=== PATIENT | female | born 1995 | race Caucasian/White ===

== ENCOUNTER 2016-09-15 02:43 | Emergency (ER) | payer OTHER ==
[2016-09-15 02:55] VITALS: TEMP 97.9
--- NOTE | 2016-09-15 02:55 | EDPHY ---
HPI/HX/ROS/PE/MDM Narrative: Chief complaint: Altered mental status, intoxication HPI: 21-year-old female states that she has been drinking alcohol and using cocaine and taking Xanax tonight. Friends state that they found her in a some point she appeared to be unresponsive. Patient is awake and alert when I am speaking with her. She denies suicidal ideation. States she was just partying was not trying to harm herself. Does have a history of depression and normally takes Lexapro. Currently is without complaint. No recent illness. ROS: 10 point Review of Systems is negative except as noted in the HPI. Physical exam: Gen: Awake, slurred speech, odor of alcohol HEENT: Nose: no rhinorrhea Eyes: PERRLA, pupils dilated at 8 mm Mouth: Moist mucosa Neck: Supple, no JVD Chest: nontender, lungs clear to auscultation Heart: S1, S2 normal, no murmur Abd: Soft, non-tender, no guarding Back: no CVA tenderness, no midline tenderness Ext: no edema, non-tender Skin: no rash Neuro: CN II-XII intact, Sensation grossly intact, Strength 5/5 in bilateral upper and lower extremities ED Course: Patient ambulating without assistance the emergency department. She is not clinically intoxicated. Will discharged in the care of her friends. - Data Points Medications Given: Discontinued Medications Sodium Chloride (Ns) 1,000 mls @ 0 mls/hr IV ONCE ONE PRN Reason: Wide Open Stop: 09/15/16 03:16 Last Admin: 09/15/16 03:15 Dose: 1,000 mls General Time Seen by Provider: 09/15/16 02:50 Initial Vital Signs: Initial Vital Signs Temperature (C) 36.6 C 09/15/16 02:49 Heart Rate 96 09/15/16 02:49 Respiratory Rate 14 09/15/16 02:49 Blood Pressure 135/100 H 09/15/16 02:49 O2 Sat (%) 97 09/15/16 02:49 O2 Delivery Mode Room Air Allergies/Adverse Reactions: No Known Allergies Allergy (Unverified 09/15/16 02:51) Home Medications: Medication Instructions Recorded Unk Depress Med 09/15/16 Departure - Departure Disposition: Home, Routine, Self-Care Clinical Impression: Alcoholic intoxication, Polysubstance abuse Condition: Good Instructions: Alcohol Intoxication (ED), Polysubstance Abuse (ED) Additional Instructions: Speak with your doctor about reducing your consumption of alcohol. Referrals: Patient,NotPresent [Unknown] - As per Instructions Miriam Ruiz DO [Doctor of Osteopathy] - As per Instructions
[2016-09-15] MEDS ORDERED: NS 1,000 ML IV ONE (03:15)
[2016-09-15 06:14] VITALS: RESP 16; O2SAT 96
[2016-09-15 06:16] VITALS: BP 104/72; PULSE 81
== END 2016-09-15 06:24 | disposition home or self-care (01) ==
DX: F10.129 Alcohol abuse with intoxication, unspecified (principal); F19.10 Other psychoactive substance abuse, uncomplicated

== ENCOUNTER 2017-05-29 02:02 | Emergency (ER) | payer OTHER ==
--- NOTE | 2017-05-29 02:20 | EDPHY ---
H & P Time Seen by Provider: 05/29/17 02:08 HPI/ROS: CHIEF COMPLAINT: Alcohol intoxication HISTORY OF PRESENT ILLNESS: The patient is a university student. Patient was found by bystanders to be severely intoxicated and therefore they called EMS system. Patient denies any injuries, denies loss of consciousness, denies any recent trauma. Patient denies coingestion, patient denies suicidal or homicidal behavior. She has a prior visit for alcohol, cocaine, Xanax intoxication. REVIEW OF SYSTEMS: Constitutional: No fever, no chills. Eyes:No visual changes. ENT: No sore throat. Respiratory: No cough, no shortness of breath. Cardiac: No chest pain. Gastrointestinal: No abdominal pain, vomiting or diarrhea. Genitourinary: No hematuria. Musculoskeletal: No back pain. Skin: No rashes. Neurological: No headache. PAST MEDICAL HISTORY: Depression, attention deficit hyperactivity disorder PAST SURGICAL HISTORY: None SOCIAL HISTORY: Student, single, denies tobacco or drug use, drinks alcohol occasionally PHYSICAL EXAM: General Appearance: Alert, well hydrated, appropriate, and non-toxic appearing. Head: Atraumatic without scalp tenderness or obvious injury Eyes: Pupils equal, round, reactive to light, no injection. Ears: Clear bilaterally, no perforation, normal landmarks Nose: Atraumatic, no rhinorrhea, clear. Throat: mucus membranes moist. Neck: Supple, non-tender, no lymphadenopathy. Respiratory: No retractions, no distress, no wheezes, and no accessory muscle use. Lungs are clear to auscultation bilaterally. Cardiovascular: Regular rate and rhythm, no murmurs, rubs, or gallops. Gastrointestinal: Abdomen is soft, non-tender, non-distended Musculoskeletal: Normal active ROM of all extremities, atraumatic. Neurological: Alert, appropriate, and interactive. Moves all extremities equally. Skin: No rashes, good turgor, no nodules on palpation. MEDICAL DECISION MAKING: I serially examined this patient since the patient's arrival here in the emergency department. The patient continues to become more and more sober with each examination. I serially questioned the patient and the patient's story given initially has not changed. The patient still denies any trauma, any head injury, and any illicit drug use. At this point, the patient is walking the department freely and is clinically sober. We're discharging the patient to the [facility] in stable condition. Source: Patient Exam Limitations: Intoxication - Medical/Surgical History Other PMH: depression Constitutional: Initial Vital Signs Temperature (C) 36.5 C 05/29/17 02:05 Heart Rate 115 H 05/29/17 02:05 Respiratory Rate 17 05/29/17 02:05 Blood Pressure 145/95 H 05/29/17 02:05 O2 Sat (%) 98 05/29/17 02:05 O2 Delivery Mode Room Air Allergies/Adverse Reactions: No Known Allergies Allergy (Unverified 09/15/16 02:51) Home Medications: Medication Instructions Recorded Marcel 05/29/17 Departure - Departure Disposition: Law Enforcement/Court/Care Home Clinical Impression: Tachycardia Alcoholic intoxication Qualifiers: Complication of substance-induced condition: with delirium Qualified Code(s): F10.921 - Alcohol use, unspecified with intoxication delirium Condition: Good Instructions: Alcohol Intoxication (ED) Referrals: [facility] 24 Hours [Outside] - As per Instructions
[2017-05-29 03:28] VITALS: BP 132/84; PULSE 72; RESP 18; TEMP 97.9; O2SAT 96
== END 2017-05-29 03:24 ==
LOC: EDUNIT#
DX: F10.921 Alcohol use, unspecified with intoxication delirium (principal); R00.0 Tachycardia, unspecified